=== PATIENT | female | born 1960 | race Two or more races ===

== ENCOUNTER 2016-02-27 01:07 | Emergency (ER) | payer MEDICAID, OTHER ==
--- NOTE | 2016-02-27 01:31 | ERNOTE ---
Date of Service: 02/27/16 Stated Complaint: PNUEMONIA Presenting Symptoms:: cough, fever, other - aches and pains Source: patient Exam Limitations: no limitations Immunizations: IMMUNIZATION HX Immunizations Up to Date Yes History of Influenza Vaccine No Hx Pneumococcal Vaccination No Allergies/Adverse Reactions: Allergies aspirin Allergy (Severe, Verified 02/27/16 01:14) Iodinated Contrast Media - IV Dye Allergy (Severe, Verified 02/27/16 01:14) prednisone Allergy (Severe, Verified 02/27/16 01:14) Home Medications: HOME MEDICATIONS Amox Tr/Potassium Clavulanate [Augmentin 875-125 Tablet] 875 mg PO Q12H #20 tab 02/27/16 [Last Taken Unknown] Atenolol [Tenormin] 100 mg PO DAILY 02/27/16 [Last Taken 02/26/16 21:00] Flecainide Acetate [Tambocor] 100 mg PO BID 02/27/16 [Last Taken 02/26/16 21:00] Guaifenesin/Codeine Phosphate [Codeine-Guaifen 10-100 mg/5 ml] 5 ml PO 5XD PRN # 240 liquid 02/27/16 [Last Taken Unknown] Lisinopril/Hydrochlorothiazide [Lisinopril-Hctz 20-12.5 mg Tab] 1 each PO HS 11/04 [Last Taken 02/26/16 21:00] - History of Present Ilness Narrative: 55-year-old female who smokes pack of cigarettes per day for many years states she developed a cold and cough 2 days ago and feels achy all over. She has not had a flu shot Timing: constant Severity: moderate Frequency/Possible Cause: Reports: occasional episodes Modifying Factors - Improves: Reports: nothing Modifying Factors - Worsens: Reports: nothing Associated Symptoms: Reports: cough, shortness of breath, muscle aches, fever/ chills Review of Systems - Review of Systems Constitutional: Present: See HPI EYE: Present: no symptoms reported ENT: Present: See HPI Respiratory: Present: See HPI Cardiology: Present: no symptoms reported Gastrointestinal/Abdominal: Present: no symptoms reported Genitourinary: Present: no symptoms reported Musculoskeletal: Present: See HPI Skin: Present: no symptoms reported Neurological: Present: no symptoms reported Endocrine: Present: no symptoms reported Hematologic/Lymphatic: Present: no symptoms reported Psych: Present: no symptoms reported All Other Systems: All systems neg except as marked - Patient's Past Medical History Patient History - Medical: Anemia Patient History - Surgical Procedures: Appendectomy, Cholecystectomy, Hysterectomy, Other - Social History Living Situations: home Smoking Status: Current every day smoker Patient requests Smoking Cessation Consult: No Initiate information on Smoking Cessation: No Alcohol Use: none Drug Use: none Physical Exam - Physical Exam General Appearance: Present: mild distress Eye Exam: Normal inspection: bilateral, PERRL: bilateral Ears, Nose, Throat: Present: normal ENT inspection, hearing grossly normal, normal pharynx Neck: Present: normal inspection, nontender Respiratory: Present: no respiratory distress, no accessory muscle use, chest nontender, other - distant harsh breath sounds bilaterally but no rales rhonchi or wheezing Cardiovascular/Chest: Present: regular rate, rhythm, no murmur, normal peripheral pulses Gastrointestinal/Abdominal: Present: normal bowel sounds, nontender, nondistended, soft, no organomegaly Rectal Exam: Present: deferred Back Exam: Present: normal inspection, normal range of motion, no CVA tenderness , no vertebral tenderness Extremity Exam: Present: normal inspection, non-tender, no edema, normal range of motion Neurological Exam: Present: alert, oriented, normal mood/affect, no motor/ sensory deficits Skin Exam: Present: normal color, warm/dry Lymphatic Exam: Present: no adenopathy ED Progress - Results and Orders Patient's Lab Results:: I have reviewed the patient's lab results. Results and Orders: Was elevated 15,000. Hemoglobin noted 8.8 but she has a long history of chronic anemia and is seeing a specialist and [facility] for this. - Vital Signs Patient's Vital Signs:: I have reviewed the patient's vital signs. Vital Signs: Vital Signs 02/27/16 01:10 Temperature 36.8 C Pulse Rate 71 Respiratory 20 Rate Blood Pressure 155/52 O2 Sat by Pulse 100 Oximetry - X-Ray X-Ray #1 X-Ray: chest - Scarring of LLL. 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
[2016-02-27 01:36] LABS: Hematocrit 27.9 % (37.0-47.0); Hemoglobin 8.8 gm/dL (12.5-16.0); Mean Cell Volume 81.6 fl (78-100); Mean Corpuscular Hemoglobin 25.7 pg (27-31); Mean Corpuscular Hgb Conc 31.5 g/dl (32-36); Mean Platelet Volume 9.3 fl (6.0-9.5); Platelet Count 406 K/mm3 (150-450); Red Blood Count 3.42 M/mm3 (4.2-5.4); Red Cell Distribution Width 14.5 % (11.5-14.0); White Blood Count 16.1 K/mm3 (4.0-10.5)
[2016-02-27 01:43] LABS: Total Cells Counted 100
[2016-02-27 01:59] LABS: Band 2 % (0-2.0); Hypochromia Trace; Lymphocyte 10 % (20-51); Microcytosis 1+; Monocyte 13 % (0-9); Neutrophil 75 % (42-75); Neutrophil # 12.1 K/mm3 (1.3-6.0); Platelet Estimate Normal (NORMAL)
[2016-02-27] MEDS ORDERED: AMOX TR/POTASSIUM CLAVULANATE 875 MG TABLET ONE (02:24)
[2016-02-27] MEDS ORDERED: AMOX TR/POTASSIUM CLAVULANATE 875 MG TABLET PO ONE (02:25)
[2016-02-27 02:36] VITALS: BP 145/42
== END 2016-02-27 02:35 | disposition home or self-care (01) ==
LOC: ER 01:07
DX: J20.9 Acute bronchitis, unspecified (principal); F17.210 Nicotine dependence, cigarettes, uncomplicated; D50.0 Iron deficiency anemia secondary to blood loss (chronic)

== ENCOUNTER 2016-04-02 17:56 | Emergency (ER) | payer OTHER ==
[2016-04-02 18:37] LABS: Hematocrit 34.4 % (37.0-47.0); Hemoglobin 11.2 gm/dL (12.5-16.0); Mean Cell Volume 83.9 fl (78-100); Mean Corpuscular Hemoglobin 27.3 pg (27-31); Mean Corpuscular Hgb Conc 32.6 g/dl (32-36); Mean Platelet Volume 9.5 fl (6.0-9.5); Neutrophil # 7.4 K/mm3 (1.3-6.0); Neutrophil % 71.8 % (42-75.0); Platelet Count 406 K/mm3 (150-450); Red Cell Distribution Width 18.2 % (11.5-14.0); White Blood Count 10.3 K/mm3 (4.0-10.5)
[2016-04-02] MEDS ORDERED: ALBUTEROL SULFATE 2.5 MG/0.5 ML VIAL.NEB IH ONE ×2 (18:41→18:47)
[2016-04-02 18:50] LABS: Albumin * 3.1 gm/dl (3.4-5.0); Anion Gap 15.2 mmol/L (6.8-13.8); Bilirubin, Total 0.1 mg/dL (0.0-1.1); Ca. Corrected For Albumin 9.4 mg/dL (8.4-10.2); Carbon Dioxide 20.3 mmol/L (24-32.6); Potassium 3.5 mmol/L (3.4-4.6)
--- NOTE | 2016-04-02 18:54 | ERNOTE ---
Dyspnea - Date Date of Service: 04/02/16 - General Presenting Symptoms: shortness of breath, difficulty of breathing, other - cough Time Seen by Provider: 04/02/16 18:31 Source: patient Exam Limitations: no limitations - Immun/Allergies/Home Medications Immunizations: IMMUNIZATION HX Immunizations Up to Date Yes History of Influenza Vaccine No Hx Pneumococcal Vaccination No Allergies/Adverse Reactions: Allergies aspirin Allergy (Severe, Verified 04/02/16 18:11) Iodinated Contrast Media - IV Dye Allergy (Severe, Verified 04/02/16 18:11) prednisone Allergy (Severe, Verified 04/02/16 18:11) Home Medications: HOME MEDICATIONS Atenolol [Tenormin] 100 mg PO DAILY 02/27/16 [Last Taken 02/26/16 21:00] Flecainide Acetate [Tambocor] 100 mg PO BID 02/27/16 [Last Taken 02/26/16 21:00] Lisinopril/Hydrochlorothiazide [Lisinopril-Hctz 20-12.5 mg Tab] 1 each PO HS 11/04 [Last Taken 02/26/16 21:00] - History of Present Illness Narrative: Pt. comes in with c/o SOB and cough for two days. Pt. states it is accompanied by nasal congestion and post nasal gtt. Pt. recently had a bronchitis 2 weeks ago that resolved with Antibiotics but then started feeling bad again yesterday. Pt. denies any chest pain, fever, sore throat, NVD, or alleviating factors. Pt. states that the cold and lying down exacerbate the symptoms. Review of Systems - Review of Systems Constitutional: Present: recent illness, fatigue, malaise. Absent: fever, chills EYE: Present: no symptoms reported ENT: Present: nose congestion, nasal drainage. Absent: ear pain, sore throat Respiratory: Present: shortness of breath, cough. Absent: wheezing Cardiology: Present: no symptoms reported. Absent: chest pain, palpitations, edema Gastrointestinal/Abdominal: Present: no symptoms reported. Absent: nausea, vomiting, diarrhea Genitourinary: Present: no symptoms reported Musculoskeletal: Present: no symptoms reported. Absent: back pain, joint pain Skin: Present: no symptoms reported. Absent: rash, change in color Neurological: Present: no symptoms reported. Absent: headache, dizziness/light- headedness, numbness, tingling All Other Systems: All systems neg except as marked - Patient's Past Medical History Patient History - Medical: Anemia Patient History - Cardiac/Respiratory: Hypertension, Hyperlipidemia, Myocardial Infarction Patient History - Surgical Procedures: Appendectomy, Cholecystectomy, Hysterectomy, Other Patient History - Other: None - Social History Living Situations: home Abuse History: No History of abuse Psych History: No pertinent hx Alcohol Use: none Drug Use: none - Immunizations Immunizations Up to Date: Yes Hx Pneumococcal Vaccination: No History of Influenza Vaccine: No Physical Exam - Physical Exam General Appearance: Present: wd/wn, alert, no apparent distress Eye Exam: Normal inspection: bilateral, PERRL: bilateral, EOMI: bilateral Ears, Nose, Throat: Present: hearing grossly normal, nasal congestion, sinus pain/drainage, tonsillar exudate - white. Absent: abnormal TM (R), abnormal TM (L), pharyngeal erythema Neck: Present: normal inspection, nontender. 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 is SOB and tachycardic we will perform CT chest here on emergent basis rather than out pt. 04/02/16 19:46 Pt. with severe allergy to IV dye and the premedication so will not perform CT and consult with her pulmonology team at [facility] as this is suspicious for recurrent histoplasmosis. 04/02/16 20:[address] Narvaez and as pt. has significant history he recommends pt. be transferred to [facility] for pleuralcentesis, evaluation of fluid and possible decortication as he feels that since pt. has rapidly declined over the past two days that she requires emergent admit to [facility]. Pt. will go to ED for start of work up as there are no open bed at this time on the MICU. Gave report to Dr Browning in the ED and he would like me to give solumedrol to pt. He is aware of allergy and feels it is safe. - Results and Orders Patient's Lab Results:: I have reviewed the patient's lab results. - Vital Signs Patient's Vital Signs:: I have reviewed the patient's vital signs. Vital Signs: Vital Signs 04/02/16 04/02/16 04/02/16 18:04 18:25 18:26 Temperature 36.6 C Pulse Rate 86 107 H Respiratory 12 Rate Blood Pressure 149/76 O2 Sat by Pulse 98 98 Oximetry - X-Ray X-Ray #1 X-Ray: chest Interpretation: Reviewed by me X-ray Comments: Loculated fluid LLL enlarging - Progress/Reassessment Chief Complaint: Dyspnea Departure Clinical Impression: Pleural effusion, Histoplasmosis capsulati, unspecified - Departure Disposition: [facility] Condition: Fair Referrals: Medina Ritter DO [Primary Care Provider] -
[2016-04-02] MEDS ORDERED: ACETAMINOPHEN 500 MG TABLET PO ONE (19:30)
[2016-04-02] MEDS ORDERED: METHYLPREDNISOLONE SOD SUCC/PF 125 MG/2 ML VIAL IV ONE (20:22)
[2016-04-02] MEDS ORDERED: METHYLPREDNISOLONE SOD SUCC/PF 125 MG/2 ML VIAL ONE (20:29)
[2016-04-02 20:47] VITALS: BP 134/62
--- OUTSIDE RECORDS SUMMARY | 2016-04-02 20:58 | XMS REPORT | Continuity of Care Document ---
:1960 Author Organization [facility] [place] [address] Care Team Providers Name Role Phone Unavailable Primary Care Provider Unavailable Source Comments This disclosure is being made pursuant to the [employer] program and maynot contain all information available regarding this patient.[facility] Active Allergies and Adverse Reactions Allergen Noted Date Severity Reactions Comments Aspirin 01/21/2014 Headache Prednisone 01/21/2014 High Hives Current Medications Be aware that medications may not be up to date as of this document. Alwaysverify current medications with the patient. Prescription Sig. Disp. Refills Start Date End Date Status ferrous sulfate 325 (65 FE) Take 325 mg by Active MG TABS tablet mouth daily with breakfast. albuterol (PROVENTIL Inhale 2 puffs Active HFA;VENTOLIN HFA) 108 (90 into the lungs BASE) MCG/ACT inhaler every 4 (four) to 6 (six) hours as needed for Wheezing. hydrochlorothiazide Take 25 mg by Active (HYDRODIURIL) 25 MG tablet mouth daily. lisinopril Take 40 mg by Active (PRINIVIL,ZESTRIL) 40 MG mouth daily. tablet isosorbide dinitrate Take 10 mg by Active (ISORDIL) 10 MG tablet mouth 2 (two) times daily. atorvastatin (LIPITOR) 10 MG Take 10 mg by Active tablet mouth daily. pantoprazole (PROTONIX) 40 Inject 40 mg Active MG injection into the vein daily. metoprolol tartrate Take 25 mg by Active (LOPRESSOR) 25 MG tablet mouth 2 (two) times daily. clopidogrel (PLAVIX) 75 MG Take 75 mg by Active tablet mouth daily. nitroGLYCERIN (NITROSTAT) Place 0.4 mg Active 0.4 MG SL tablet under the tongue every 5 (five) minutes as needed for Chest pain. Active Problems Not on file Most Recent Encounters Date Type Specialty Providers Description 02/02/2016 Data Import Social History Tobacco Use Types Packs/Day Years Used Date Never Assessed Plan of Care Health Maintenance Due Date Last Done Comments Tetanus/Pertussis (1 - Tdap) 1980 Pap Smear 1982 Colonoscopy 12/07/2011 Mammogram 12/07/2011 Well Adult Visit 12/07/2011 Influenza Immunization (#1) 2015 Results from Last 3 Months Not on file
--- OUTSIDE RECORDS SUMMARY | 2016-04-02 20:58 | XMS REPORT | Continuity of Care Document ---
:1960 Author Organization [facility] ([facility]) Address [place] [address] Phone [phone] Care Team Providers Name Role Phone Medina Ritter Primary Care Provider [phone] Source Comments This disclosure is being made pursuant to the Care Everywhere program, applicable federal and state laws, and may not contain all informaitonavailable regarding this patient.[facility] ([facility]) Active Allergies and Adverse Reactions Allergen Noted Date Severity Reactions Comments Aspirin Urticaria (Hives) Iodine Urticaria (Hives),Pruritus,Song sea & Vomiting Iopamidol Pruritus,Nausea & Pt. premedicated with Vomiting prednisone and still had reaction 09-18-07 Isosorbide Mononitrate Urticaria (Hives),Angioedema Prednisone Nausea & Vomiting Current Medications Prescription Sig. Disp. Refills Start Date End Date Status flecainide 100 mg Take 1 tablet 60 tablet 11 03/18/2015 Active tablet (100 mg total) by mouth 2 times daily. atenolol 100 mg tablet Take 1 tablet 30 tablet 11 03/18/2015 Active (100 mg total) by mouth daily. lisinopril-hydrochlorot Take 1 tablet by 30 tablet 11 04/25/2015 Active hiazide 20-12.5 mg per mouth daily. 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 LMCA normal. LAD 50% mid, LCX normal. RCA normal 10/20/2006- [place] Cath: Normal EF. LMCA normal. LAD 50% mid, LCX normal. RCA normal Stent to mid LAD (pt report) 10/25/2006-[place] Cath: Normal EF. LMCA normal. LAD patent stent, LCX normal. RCA normal Stent to mid LAD 11/2006 [facility] Stress Test MPI: 03/17/2007//08/11/2007 [facility]. No ischemia. 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 --MAL Coronary atherosclerosis of unspecified type of vessel, [place] 09/11/2007 or graft Other and unspecified hyperlipidemia 09/11/2007 03/17/2015 Other chest pain 08/10/2007 04/25/2015 Anemia, unspecified 06/25/2007 03/17/2015 Other diseases of lung, not elsewhere classified 11/26/2006 11/15/2015 Chest pain, unspecified 11/26/2006 03/17/2015 Most Recent Encounters Date Type Specialty Providers Description 04/02/2016 Hospital Encounter Emergency Medicine Immunizations Name Dates Previously Given Next Due Influenza, unspecified 03/15/2007 Social History Tobacco Use Types Packs/Day Years Used Date Current Every Day Smoker Cigarettes 0.5 35 Smokeless Tobacco: Never Used Tobacco Cessation:Ready to Quit: No; Counseling Given: Yes Comments: Alcohol Use Drinks/Week oz/Week Comments No Last Filed Vital Signs Vital Sign Reading Time Taken Blood Pressure 136/60 05/19/2015 12:44 PM CDT Pulse 68 05/19/2015 12:44 PM CDT Temperature 36.7 C (98.1 F) 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 Respiratory Rate 18 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 Height 1.575 m (5' 2.01") 05/19/2015 12:44 PM CDT Weight 58.514 kg (129 lb) 05/19/2015 12:44 PM CDT Body Mass Index 23.59 05/19/2015 12:44 PM CDT Oxygen Saturation 99% 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
== END 2016-04-02 20:43 | disposition short-term general hospital (02) ==
LOC: ER 17:56
DX: J90 Pleural effusion, not elsewhere classified (principal); B39.4 Histoplasmosis capsulati, unspecified

== ENCOUNTER 2016-11-23 20:09 | Emergency (ER) | payer OTHER ==
--- NOTE | 2016-11-23 20:32 | ERNOTE ---
Medical Problem HPI - Narrative Date of Service: 11/23/16 - General Chief Complaint: General Assessment Time Seen by Provider: 11/23/16 20:29 Source: patient, RN notes reviewed Exam Limitations: no limitations - Immun/Allergies/Home Medications Immunizations: IMMUNIZATION HX Immunizations Up to Date Yes History of Influenza Vaccine No Hx Pneumococcal Vaccination No Allergies/Adverse Reactions: Allergies aspirin Allergy (Severe, Verified 11/23/16 20:28) Iodinated Contrast- Oral and IV Dye [Iodinated Contrast Media - IV Dye] Allergy (Severe, Verified 11/23/16 20:28) prednisone Allergy (Severe, Verified 11/23/16 20:28) Home Medications: HOME MEDICATIONS Lisinopril/Hydrochlorothiazide [Lisinopril-Hctz 20-12.5 mg Tab] 1 each PO HS 11/04 [Last Taken 02/26/16 21:00] Flecainide Acetate 100 mg PO BID 11/23/16 [Last Taken Unknown] Pramipexole Di-HCl [Pramipexole Dihydrochloride] 0.25 mg PO DAILY 11/23/16 [ Last Taken Unknown] - History of Present History Narrative: 55 year old female presents to the ED for "low iron." She has chronic anemia that she reports is of an unknown cause. She states that her "iron" level was 9 two weeks ago, but she has been gradually becoming more fatigued. She has an appointment with her PCP in 4 days. She has to work a 24 hour shift tomorrow and does not feel that she will be able to do this. Review of Systems - Review of Systems Constitutional: Present: fatigue, malaise. Absent: recent illness, fever, chills EYE: Present: no symptoms reported ENT: Present: no symptoms reported Respiratory: Present: shortness of breath. Absent: cough, wheezing Cardiology: Absent: chest pain, palpitations, syncope Gastrointestinal/Abdominal: Absent: nausea, vomiting, diarrhea, abdominal pain, other - blood in stools Genitourinary: Absent: hematuria, decreased urinary output Musculoskeletal: Present: muscle pain, joint pain Skin: Absent: rash, lesions Neurological: Present: headache, dizziness/light-headedness Endocrine: Present: no symptoms reported Hematologic/Lymphatic: Absent: easy bruising, easy bleeding Psych: Present: no symptoms reported - Patient's Past Medical History Patient History - Medical: Anemia Patient History - Cardiac/Respiratory: Hypertension, Hyperlipidemia, Myocardial Infarction Patient History - Cancer: No Hx of Cancer Patient History - Surgical Procedures: Appendectomy, Cholecystectomy, Hysterectomy, Other Patient History - Other: None LMP (females 10-50): other - Social History Living Situations: home Abuse History: No History of abuse Psych History: No pertinent hx - Immunizations Immunizations Up to Date: Yes Hx Pneumococcal Vaccination: No History of Influenza Vaccine: No Physical Exam - Physical Exam General Appearance: Present: wd/wn, alert, no apparent distress Eye Exam: Normal inspection: bilateral Neck: Present: normal inspection, nontender, supple Respiratory: Present: no respiratory distress, normal breath sounds, no accessory muscle use, lungs clear Cardiovascular/Chest: Present: regular rate, rhythm, no murmur, normal peripheral pulses Extremity Exam: Present: normal inspection, normal range of motion, no edema Neurological Exam: Present: alert, oriented, no motor/sensory deficits, other - depressed appearing. Absent: normal mood/affect Skin Exam: Present: normal color, warm/dry ED Progress - Results and Orders Patient's Lab Results:: I have reviewed the patient's lab results. - Vital Signs Patient's Vital Signs:: I have reviewed the patient's vital signs. Vital Signs: Vital Signs 11/23/16 20:16 Temperature 36.7 C Pulse Rate 86 Respiratory 14 Rate Blood Pressure 162/62 O2 Sat by Pulse 97 Oximetry - Progress/Reassessment Chief Complaint: General Assessment Progress:: Unchanged Plan - Plan Plan: Hgb 8.9, results discussed with patient, to f/u with her PCP as scheduled. Work excuse given for tomorrow. Departure Clinical Impression: Chronic anemia - Departure Disposition: Home Follow Up Needed Condition: Stable Instructions: Anemia, Nonspecific, Form - Excuse from Work, School, or Physical Activity Additional Instructions: Follow up with Dr. Ritter as scheduled Referrals: Medina Ritter DO [Primary Care Provider] -
[2016-11-23 20:44] LABS: Hematocrit 28.2 % (37.0-47.0); Hemoglobin 8.9 gm/dL (12.5-16.0); Mean Cell Volume 83.2 fl (78-100); Mean Corpuscular Hemoglobin 26.3 pg (27-31); Mean Corpuscular Hgb Conc 31.6 g/dl (32-36); Mean Platelet Volume 9.4 fl (6.0-9.5); Neutrophil # 7.6 K/mm3 (1.3-6.0); Neutrophil % 67.8 % (42-75.0); Platelet Count 457 K/mm3 (150-450); Red Blood Count 3.39 M/mm3 (4.2-5.4); Red Cell Distribution Width 14.5 % (11.5-14.0); White Blood Count 11.2 K/mm3 (4.0-10.5)
[2016-11-23 21:01] VITALS: BP 166/74
== END 2016-11-23 21:06 | disposition home or self-care (01) ==
LOC: ER 20:09
DX: D64.9 Anemia, unspecified (principal); I10 Essential (primary) hypertension; E78.5 Hyperlipidemia, unspecified; I25.2 Old myocardial infarction

== ENCOUNTER 2020-06-16 23:20 | Observation (INO) ==
[2020-06-16] MEDS ORDERED: hydrALAZINE HCL 20 MG/ML VIAL IV ONE (23:46)
[2020-06-16] MEDS ORDERED: hydrALAZINE HCL 20 MG/ML VIAL ONE (23:47)
--- NOTE | 2020-06-16 23:52 | ERNOTE ---
Chest Pain/Cardiac HPI Date of Service: 06/16/20 Chief Complaint: Chest Pain Time Seen by Provider: 06/16/20 23:35 Source: patient, family Exam Limitations: no limitations Immunizations: IMMUNIZATION HX Immunizations Up to Date Yes History of Influenza Vaccine No Hx Pneumococcal Vaccination More Information Required Allergies/Adverse Reactions: Allergies aspirin Allergy (Severe, Verified 06/16/20 23:42) Iodinated Contrast Media [Iodinated Contrast Media - IV Dye] Allergy (Severe, Verified 06/16/20 23:42) prednisone Allergy (Severe, Verified 06/16/20 23:42) codeine Allergy (Verified 06/16/20 23:42) nauseas and rash Home Medications: HOME MEDICATIONS Lisinopril/Hydrochlorothiazide [Lisinopril-Hctz 20-12.5 mg Tab] 1 ea PO HS 02/27/16 [Last Taken 06/16/20 20:00] acetaminophen 325 mg capsule 325 mg PO DAILY PRN cap 03/05/18 [Last Taken Unknown] flecainide 100 mg tablet 200 mg PO Q12H tab 03/05/18 [Last Taken 06/16/20 20:00] ibuprofen 200 mg tablet 800 mg PO TID PRN tab 03/05/18 [Last Taken 06/16/20 19:00] omeprazole 40 mg capsule,delayed release 40 mg PO DAILY 03/05/18 [Last Taken 06/16/20 10:00] tiotropium bromide 1.25 mcg/actuation mist for inhalation 2 inh IH DAILY 03/05/18 [Last Taken Unknown] Carvedilol [Coreg] 1 mg PO DAILY 09/09/18 [Last Taken 06/16/20 10:00] rOPINIRole HCL [Ropinirole HCl] 0.5 mg PO BID 06/29/19 [Last Taken 06/16/20 20:00] Ondansetron [Zofran Odt] 4 mg PO Q6H PRN #20 tab 04/29/20 [Last Taken 06/16/20] Rivaroxaban [Xarelto] 20 mg PO HS 04/29/20 [Last Taken 06/16/20 20:00] Escitalopram Oxalate 10 mg PO DAILY 06/01/20 [Last Taken 06/16/20 10:00] Pain Score #1 Pain Score: 5 Narrative: Patient is 59-year-old female presents to emergency room today accompanied by caregiver and friend with chief complaint of having very high blood pressure and headache started about 10 PM today. Patient has history of CVA hypertension. Patient takes carvedilol 1 mg once daily and lisinopril hydrochlorothiazide 20- 12.5 once at bedtime. 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 Caregiver reports that she has not been feeling well and last 3-month and has not been really having any appetite. She has been taking the medication as prescribed. She had endoscopy about a week ago and she has had high blood pressure since then. Patient denies any nausea vomiting vision change. Patient has generalized headache no worsening weakness however patient has chronic left-sided weakness due to the pre of prior CVA. Patient feels chest tightness and generalized chest heaviness. EKG initially did not show any changes. Medical History (Last Reviewed 06/17/20 @ 04:00 by Pamela Medina RN) Anemia Onset Date: Unknown Requires blood transfusions every 6 to 8 months. Arthralgia Onset Date: 01/28/15 Heart attack x11 yrs ago Histoplasmosis Onset Date: 01/28/15 History of acute myocardial infarction Onset Date: 01/28/15 Hypertension, essential, benign Onset Date: 01/28/15 Lung infection Onset Date: Unknown Myalgia Onset Date: 01/28/15 Pneumothorax Onset Date: Unknown r/t histoplasmosis Wrist fracture, left Onset Date: 03/04/18 Surgical History: Surgical History (Last Reviewed 06/17/20 @ 04:00 by Pamela Medina RN) H/O heart artery stent History of appendectomy Onset Date: Unknown History of chest tube placement Onset Date: Unknown 6 months History of cholecystectomy Onset Date: Unknown History of colonoscopy Onset Date: 2014 normal History of hernia surgery History of lung biopsy Onset Date: Unknown History of lung surgery Onset Date: Unknown x3 History of total abdominal hysterectomy and bilateral salpingo-oophorectomy Onset Date: Unknown Family History: Family History (Last Reviewed 06/17/20 @ 04:01 by Pamela Medina RN) Mother , age 83 Cancer lung COPD (chronic obstructive pulmonary disease) Hypertension Diabetes borderline Father Medical history unknown Brother Fibromyalgia, Onset Age: 58 Social History: (Last Updated 06/17/20 @ 04:03 by Pamela Medina RN) Social History: Marital status: household members: friend(s) current occupational status: disabled Highest level of school completed/degree received: high school graduate Service: No Tobacco: Smoking Status: Current every day smoker tobacco type: cigarettes Smoking cigarettes per day: 5 Alcohol: alcohol intake: never Substance Use: substance use type: does not use Dietary Habits: caffeine: Yes caffeine comment: 1 Type: coffee Progress - Date and Time Seen: Date and Time: 06/17/20 00:25 Evaluate patient again after giving hydralazine initially elevation patient blood pressure is not within normal full range that he want to be at this moment patient is reporting chest pain improved and headache is still there we are doing the CT now as patient's blood pressure is stabilized. 06/17/20 06:32 I personally looked at the patient's lab for 3 AM we are getting good results in potassium will continue the same management for potassium. At this moment patient has mild hypokalemia and will be replaced hospitalist will take over I personally really appreciate Dr. Hernandez's help overnight and excepting patient's admission - Vital Signs Vital Signs: Vital Signs 06/16/20 23:42 Temperature 36.4 C Pulse Rate 60 Respiratory Rate 17 Blood Pressure 217/83 H O2 Sat by Pulse Oximetry 98 - Progress/Reassessment Chief Complaint: Chest Pain Plan - Plan Plan: Admitted to the hospital for hyperkalemia and physical deconditioning Departure Clinical Impression: Hypokalemia, Generalized weakness, Hypertensive emergency without congestive heart failure - Departure Disposition: Still a patient Condition: Good
[2020-06-17 00:16] LABS: Hematocrit 30.7 % (37.0-47.0); Hemoglobin 10.1 gm/dL (12.5-16.0); Mean Cell Volume 89.5 fl (78-100); Mean Corpuscular Hemoglobin 29.4 pg (27-31); Mean Corpuscular Hgb Conc 32.9 g/dl (32-36); Mean Platelet Volume 10.6 fl (8-12.5); Neutrophil # 4.7 K/mm3 (1.3-6.0); Neutrophil % 62.4 % (42-75.0); Platelet Count 325 K/mm3 (150-450); Red Blood Count 3.43 M/mm3 (4.2-5.4); Red Cell Distribution Width 13.3 % (11.5-14.0); White Blood Count 7.5 K/mm3 (4.0-10.5)
[2020-06-17 00:24] LABS: Prothrombin Time (Patient) 12.4 Seconds (9.1-10.7)
[2020-06-17 00:26] LABS: INR 1.2 INR (0.92-1.08); Partial Thrombolplastin Time 27.8 Seconds (24-32)
[2020-06-17 00:37] LABS: Albumin * 3.1 gm/dl (3.4-5.0); Anion Gap 12.7 mmol/L (6.8-13.8); BUN/Creatinine Ratio 18.3 (9.0-21.6); Bilirubin, Total 0.4 mg/dL (0.0-1.1); Ca. Corrected For Albumin 9.8 mg/dL (8.4-10.2); Calcium * 9.4 mg/dL (7.9-10.9); Carbon Dioxide 21.7 mmol/L (24-32.6); Troponin I 0.021 ng/mL (0.00-0.10)
[2020-06-17 00:39] LABS: Potassium 2.4 mmol/L (3.4-4.6)
[2020-06-17] MEDS ORDERED: POTASSIUM CHLORIDE 20 MEQ/15 ML UDC PO SCH (00:45)
[2020-06-17 00:55] LABS: Magnesium 1.6 mg/dL (1.2-2.8)
[2020-06-17] MEDS: POTASSIUM CHLORIDE IN WATER 100 ML IV SCH ×2 (01:31→02:41)
[2020-06-17] MEDS ORDERED: POTASSIUM CHLORIDE 20 MEQ TABLET.SA PO ONE ×2 (01:37→10:02)
[2020-06-17] MEDS ORDERED: ACETAMINOPHEN 500 MG TABLET PO ONE (01:42)
[2020-06-17] MEDS ORDERED: POTASSIUM CHLORIDE 40 MEQ in NORMAL SALINE 1,000 ML IV SCH (02:00)
[2020-06-17 03:22] LABS: Anion Gap 13.4 mmol/L (6.8-13.8); BUN/Creatinine Ratio 16.7 (9.0-21.6); Calcium * 8.9 mg/dL (7.9-10.9); Carbon Dioxide 19.7 mmol/L (24-32.6); Estimated Creat Clear 64.3; Potassium 3.1 mmol/L (3.4-4.6)
[2020-06-17] MEDS ORDERED: ONDANSETRON HCL/PF 2 MG/ML VIAL IV PRN (03:27)
[2020-06-17] MEDS ORDERED: hydrALAZINE HCL 20 MG/ML VIAL IV ONE (03:54)
[2020-06-17 09:37] LABS: Albumin * 2.7 gm/dl (3.4-5.0); Anion Gap 13.7 mmol/L (6.8-13.8); BUN/Creatinine Ratio 14.9 (9.0-21.6); Bilirubin, Total 0.3 mg/dL (0.0-1.1); Ca. Corrected For Albumin 9.3 mg/dL (8.4-10.2); Calcium * 8.6 mg/dL (7.9-10.9); Carbon Dioxide 19.4 mmol/L (24-32.6); Potassium 3.1 mmol/L (3.4-4.6); Total Protein 5.4 gm/dL (6.2-8.2)
[2020-06-17] MEDS ORDERED: ACETAMINOPHEN 500 MG TABLET PO PRN (12:44)
[2020-06-17 13:32] LABS: Albumin * 2.7 gm/dl (3.4-5.0); BUN/Creatinine Ratio 14.1 (9.0-21.6); Bilirubin, Total 0.3 mg/dL (0.0-1.1); Ca. Corrected For Albumin 9.3 mg/dL (8.4-10.2); Calcium * 8.6 mg/dL (7.9-10.9); Carbon Dioxide 18.8 mmol/L (24-32.6); Potassium 3.8 mmol/L (3.4-4.6); Total Protein 5.4 gm/dL (6.2-8.2)
--- NOTE | 2020-06-17 13:48 | HPDIS ---
Chief Complaint - Chief Complaint Date of Service: 06/17/20 Time of Service: 09:00 Chief Complaint: Headache, elevated Blood pressure History of Present Illness: Buffy is a 59 yo female who presented to the [facility] ER with headache and elevated blood pressure. Bloodwork, head CT, and chest xray showed only a significant hypokalemia of 2.4. She was given potassium replacement. Her blood pressure in the ER was also 217/82. She reports she had been on lisinopril/HCTZ, but had been changed to only HCTZ due to hypotension. She reports no other change in diet or medications. Medical History (Last Reviewed 06/17/20 @ 04:00 by Pamela Medina RN) Anemia Onset Date: Unknown Requires blood transfusions every 6 to 8 months. Arthralgia Onset Date: 01/28/15 Heart attack x11 yrs ago Histoplasmosis Onset Date: 01/28/15 History of acute myocardial infarction Onset Date: 01/28/15 Hypertension, essential, benign Onset Date: 01/28/15 Lung infection Onset Date: Unknown Myalgia Onset Date: 01/28/15 Pneumothorax Onset Date: Unknown r/t histoplasmosis Wrist fracture, left Onset Date: 03/04/18 Surgical History: Surgical History (Last Reviewed 06/17/20 @ 04:00 by Pamela Medina RN) H/O heart artery stent History of appendectomy Onset Date: Unknown History of chest tube placement Onset Date: Unknown 6 months History of cholecystectomy Onset Date: Unknown History of colonoscopy Onset Date: 2014 normal History of hernia surgery History of lung biopsy Onset Date: Unknown History of lung surgery Onset Date: Unknown x3 History of total abdominal hysterectomy and bilateral salpingo-oophorectomy Onset Date: Unknown Family History: Family History (Last Reviewed 06/17/20 @ 04:01 by Pamela Medina RN) Mother , age 83 Cancer lung COPD (chronic obstructive pulmonary disease) Hypertension Diabetes borderline Father Medical history unknown Brother Fibromyalgia, Onset Age: 58 Social History: (Last Updated 06/17/20 @ 04:03 by Pamela Medina RN) Social History: Marital status: household members: friend(s) current occupational status: disabled Highest level of school completed/degree received: high school graduate Service: No Tobacco: Smoking Status: Current every day smoker tobacco type: cigarettes Smoking cigarettes per day: 5 Alcohol: alcohol intake: never Substance Use: substance use type: does not use Dietary Habits: caffeine: Yes caffeine comment: 1 Type: coffee Review Of Systems (GEN) - Review of Systems Generalized/Overall Review: Present: Weakness, Fatigue. Absent: Chills, Fever EENTM: Present: No Symptoms Reported Respiratory: Absent: Cough, Shortness of Breath Cardiac: Absent: Chest Pain, Edema, Palpitations, Syncope Abdominal: Absent: Nausea, Vomiting Genitourinary: Absent: Burning, Frequency Musculoskeletal: Present: No Symptoms Reported Neurological: Present: Headache, Weakness Skin: Present: No Symptoms Reported Immunizations: IMMUNIZATION HX Immunizations Up to Date Yes History of Influenza Vaccine No Hx Pneumococcal Vaccination More Information Required Allergies/Adverse Reactions: Allergies Allergy/AdvReac Type Severity Reaction Status Date / Time aspirin Allergy Severe Verified 06/16/20 23:42 Iodinated Contrast Media Allergy Severe Verified 06/16/20 23:42 [Iodinated Contrast Media - IV Dye] prednisone Allergy Severe Verified 06/16/20 23:42 codeine Allergy nauseas Verified 06/16/20 23:42 and rash Home Medications: HOME MEDICATIONS acetaminophen 325 mg capsule 325 mg PO DAILY PRN cap 03/05/18 [Last Taken Unknown] flecainide 100 mg tablet 200 mg PO Q12H tab 03/05/18 [Last Taken 06/16/20 20:00] ibuprofen 200 mg tablet 800 mg PO TID PRN tab 03/05/18 [Last Taken 06/16/20 19:00] omeprazole 40 mg capsule,delayed release 40 mg PO DAILY 03/05/18 [Last Taken 06/16/20 10:00] tiotropium bromide 1.25 mcg/actuation mist for inhalation 2 inh IH DAILY 03/05/18 [Last Taken Unknown] rOPINIRole HCL [Ropinirole HCl] 0.5 mg PO BID 06/29/19 [Last Taken 06/16/20 20:00] Ondansetron [Zofran Odt] 4 mg PO Q6H PRN #20 tab 04/29/20 [Last Taken 06/16/20] Rivaroxaban [Xarelto] 20 mg PO HS 04/29/20 [Last Taken 06/16/20 20:00] Escitalopram Oxalate 10 mg PO DAILY 06/01/20 [Last Taken 06/16/20 10:00] Carvedilol [Coreg] 25 mg PO BID 06/17/20 [Last Taken Unknown] Losartan Potassium [Cozaar] 50 mg PO DAILY #30 tab 06/17/20 [Last Taken Unknown] Exam - Exam Vital Signs: Vital Signs - Last Taken Temp 37.2 C 06/17/20 10:55 Pulse 56 L 06/17/20 10:55 Resp 18 06/17/20 10:55 BP 154/50 H 06/17/20 10:55 Pulse Ox 98 06/17/20 10:55 Constitutional: Present: Alert, Oriented x3, Cooperative ENT Exam: Present: hearing grossly normal Eye Exam: bilateral eye: normal inspection Respiratory: Present: lungs clear, normal breath sounds Cardiovascular/Chest: Present: regular rate, rhythm, no murmur Peripheral Pulses: radial (R): 2+, radial (L): 2+ Abdomen: Present: Normal bowel sounds, soft, nontender, nondistended Skin Exam: Present: normal color, warm/dry, no cyanosis Diagnostic Studies: Abnormal Lab Results 06/17/20 06/17/20 06/17/20 Range/Units 00:05 00:05 00:05 RBC 3.43 L (4.2-5.4) M/mm3 Hgb 10.1 L (12.5-16.0) gm/dL Hct 30.7 L (37.0-47.0) % Monocytes % 10.0 H (0.0-9) % PT 12.4 H (9.1-10.7) Seconds INR (Anticoag Therapy) 1.20 H (0.92-1.08) INR Sodium 144 H (132-142) mmol/L Plasma Sodium 144 H (130-142) mmol/L Potassium 2.4 L* (3.4-4.6) mmol/L Chloride 112 H (97-106) mmol/L Carbon Dioxide 21.7 L (24-32.6) mmol/L Anion Gap (6.8-13.8) mmol/L Random Glucose (70-110) mg/dL ALT 14 L (19-67) U/L Total Protein 6.0 L (6.2-8.2) gm/dL Albumin 3.1 L (3.4-5.0) gm/dl 06/17/20 06/17/20 06/17/20 Range/Units 03:10 09:10 13:07 RBC (4.2-5.4) M/mm3 Hgb (12.5-16.0) gm/dL Hct (37.0-47.0) % Monocytes % (0.0-9) % PT (9.1-10.7) Seconds INR (Anticoag Therapy) (0.92-1.08) INR Sodium 143 H 146 H 146 H (132-142) mmol/L Plasma Sodium 143 H 146 H 147 H (130-142) mmol/L Potassium 3.1 L D 3.1 L (3.4-4.6) mmol/L Chloride 113 H 116 H 117 H (97-106) mmol/L Carbon Dioxide 19.7 L 19.4 L 18.8 L (24-32.6) mmol/L Anion Gap 14.0 H (6.8-13.8) mmol/L Random Glucose 134 H D (70-110) mg/dL ALT 14 L 14 L (19-67) U/L Total Protein 5.4 L 5.4 L (6.2-8.2) gm/dL Albumin 2.7 L 2.7 L (3.4-5.0) gm/dl Laboratory Results WBC 7.5 K/mm3 (4.0-10.5) 06/17/20 00:05 RBC 3.43 M/mm3 (4.2-5.4) L 06/17/20 00:05 Hgb 10.1 gm/dL (12.5-16.0) L 06/17/20 00:05 Hct 30.7 % (37.0-47.0) L 06/17/20 00:05 MCV 89.5 fl (78-100) 06/17/20 00:05 MCH 29.4 pg (27-31) 06/17/20 00:05 MCHC 32.9 g/dl (32-36) 06/17/20 00:05 RDW 13.3 % (11.5-14.0) 06/17/20 00:05 Plt Count 325 K/mm3 (150-450) 06/17/20 00:05 MPV 10.6 fl (8-12.5) 06/17/20 00:05 Immature Gran % (Auto) 0.10 % (0.001-0.429) 06/17/20 00:05 Immature Gran # (Auto) 0.01 K/mm3 (0.000-0.0310) 06/17/20 00:05 Neutrophils % 62.4 % (42-75.0) 06/17/20 00:05 Lymphocytes % 25.1 % (20-51) 06/17/20 00:05 Monocytes % 10.0 % (0.0-9) H 06/17/20 00:05 Eosinophils % 1.9 % (0.0-3.0) 06/17/20 00:05 Basophils % 0.5 % (0.0-1.0) 06/17/20 00:05 Nucleated RBC % 0.0 k/mm3 (0-1) 06/17/20 00:05 Neutrophils # 4.7 K/mm3 (1.3-6.0) 06/17/20 00:05 Lymphocytes # 1.88 k/mm3 (1.5-3.5) 06/17/20 00:05 Monocytes # 0.8 k/mm3 (0.0-1.0) 06/17/20 00:05 Eosinophils # 0.1 k/mm3 (0.0-0.7) 06/17/20 00:05 Absolute Basophils 0.0 k/mm3 (0.0-0.1) 06/17/20 00:05 PT 12.4 Seconds (9.1-10.7) H 06/17/20 00:05 INR (Anticoag Therapy) 1.20 INR (0.92-1.08) H 06/17/20 00:05 PTT ([place]) 27.8 Seconds (24-32) 06/17/20 00:05 Sodium 146 mmol/L (132-142) H 06/17/20 13:07 Plasma Sodium 147 mmol/L (130-142) H 06/17/20 13:07 Potassium 3.8 mmol/L (3.4-4.6) D 06/17/20 13:07 Chloride 117 mmol/L (97-106) H 06/17/20 13:07 Carbon Dioxide 18.8 mmol/L (24-32.6) L 06/17/20 13:07 Anion Gap 14.0 mmol/L (6.8-13.8) H 06/17/20 13:07 BUN 10 mg/dL (3-23) 06/17/20 13:07 Creatinine 0.71 mg/dL (0.4-1.4) 06/17/20 13:07 Est GFR (Non-Af Amer) 90 mL/min (60-130) 06/17/20 13:07 BUN/Creatinine Ratio 14.1 (9.0-21.6) 06/17/20 13:07 Random Glucose 134 mg/dL (70-110) H D 06/17/20 13:07 Calcium 8.6 mg/dL (7.9-10.9) 06/17/20 13:07 Calcium Adj for Albumin 9.3 mg/dL (8.4-10.2) 06/17/20 13:07 Magnesium 1.6 mg/dL (1.2-2.8) 06/17/20 00:05 Total Bilirubin 0.3 mg/dL (0.0-1.1) 06/17/20 13:07 AST 13 U/L (0-48) 06/17/20 13:07 ALT 14 U/L (19-67) L 06/17/20 13:07 Alkaline Phosphatase 59 U/L (50-170) 06/17/20 13:07 Creatine Kinase 53 U/L (0-259) 06/17/20 00:05 Troponin I 0.021 ng/mL (0.00-0.10) 06/17/20 00:05 Total Protein 5.4 gm/dL (6.2-8.2) L 06/17/20 13:07 Albumin 2.7 gm/dl (3.4-5.0) L 06/17/20 13:07 SARS-CoV-2 (PCR) Not detected (NotDetected) 06/17/20 01:43 Assessment/Plan - Narrative Narrative: Buffy was given potassium in the ER. Potassium recheck was 3.1 and still a little low. Blood pressure is improved to 154/50. She is feeling better. Weakness secondary to hypokalemia. Will admit to observation and continue potassium replacement. Plan to discharge to home later today once potassium normalizes. Will plan to stop HCTZ and start losartan for blood pressure control and to prevent hypokalemia. - Assessment/Plan (1) Accelerated essential hypertension Problem: Acute (2) Hypokalemia Problem: Acute (3) Generalized weakness Problem: Acute (1) Accelerated essential hypertension Problem: Resolved (2) Hypokalemia Problem: Resolved (3) Generalized weakness Problem: Resolved Date of Discharge:: 06/17/20 Hospital Course: Buffy was admitted for hypokalemia and accellerated hypertension. Potassium was replaced and her weakness improved and she feels back to normal. Her blood pressure improved as well. Hypokalemia is secondary to HCTZ. Will discontinue HCTZ and start losartan. Follow up with her PCP for potassium recheck and blood pressure monitoring. Procedures Performed: none Results and Findings: Lab Pending Results 06/17/20 00:05: WBC 7.5, RBC 3.43 L, Hgb 10.1 L, Hct 30.7 L, MCV 89.5, MCH 29.4, MCHC 32.9, RDW 13.3, Plt Count 325, MPV 10.6, Immature Gran % (Auto) 0.10, Immature Gran # (Auto) 0.01, Neutrophils % 62.4, Lymphocytes % 25.1, Monocytes % 10.0 H, Eosinophils % 1.9, Basophils % 0.5, Nucleated RBC % 0.0, Neutrophils # 4.7, Lymphocytes # 1.88, Monocytes # 0.8, Eosinophils # 0.1, Absolute Basophils 0.0 06/17/20 00:05: PT 12.4 H, INR (Anticoag Therapy) 1.20 H, PTT ([place]) 27.8 06/17/20 00:05: Sodium 144 H, Plasma Sodium 144 H, Potassium 2.4 L*, Chloride 112 H, Carbon Dioxide 21.7 L, Anion Gap 12.7, BUN 13, Creatinine 0.71, Est GFR (Non-Af Amer) 90 D, BUN/Creatinine Ratio 18.3, Random Glucose 94, Calcium 9.4, Calcium Adj for Albumin 9.8, Total Bilirubin 0.4, AST 12, ALT 14 L, Alkaline Phosphatase 70, Troponin I 0.021, Total Protein 6.0 L, Albumin 3.1 L 06/17/20 00:05: Magnesium 1.6, Creatine Kinase 53 06/17/20 01:43: SARS-CoV-2 (PCR) Not detected 06/17/20 03:10: Sodium 143 H, Plasma Sodium 143 H, Potassium 3.1 L D, Chloride 113 H, Carbon Dioxide 19.7 L, Anion Gap 13.4, BUN 12, Creatinine 0.72, Est GFR (Non-Af Amer) 88, BUN/Creatinine Ratio 16.7, Random Glucose 96, Calcium 8.9 06/17/20 09:10: Sodium 146 H, Plasma Sodium 146 H, Potassium 3.1 L, Chloride 116 H, Carbon Dioxide 19.4 L, Anion Gap 13.7, BUN 10, Creatinine 0.67, Est GFR (Non- Af Amer) 96, BUN/Creatinine Ratio 14.9, Random Glucose 95, Calcium 8.6, Calcium Adj for Albumin 9.3, Total Bilirubin 0.3, AST 12, ALT 14 L, Alkaline Phosphatase 60, Total Protein 5.4 L, Albumin 2.7 L 06/17/20 13:07: Sodium 146 H, Plasma Sodium 147 H, Potassium 3.8 D, Chloride 117 H, Carbon Dioxide 18.8 L, Anion Gap 14.0 H, BUN 10, Creatinine 0.71, Est GFR (Non-Af Amer) 90, BUN/Creatinine Ratio 14.1, Random Glucose 134 H D, Calcium 8.6, Calcium Adj for Albumin 9.3, Total Bilirubin 0.3, AST 13, ALT 14 L, Alkaline Phosphatase 59, Total Protein 5.4 L, Albumin 2.7 L Discharge Location: Home Disposition: Home self-care Condition: Good Discharge Activity: Activity as tolerated Discharge Diet: Low salt Referrals: Medina Ritter DO [Primary Care Provider] - One Week Problem Oriented Discharge Instructions to Patient/Family: Hypokalemia Prescriptions (Any new or edited meds): Losartan Potassium [Cozaar] 50 mg PO DAILY #30 tab Transmission Status: Pending to [facility] #[id number] Complete Home Medications List: Complete Home Medication List: acetaminophen 325 mg capsule 325 mg PO DAILY PRN cap 03/05/18 flecainide 100 mg tablet 200 mg PO Q12H tab 03/05/18 ibuprofen 200 mg tablet 800 mg PO TID PRN tab 03/05/18 omeprazole 40 mg capsule,delayed release 40 mg PO DAILY 03/05/18 tiotropium bromide 1.25 mcg/actuation mist for inhalation 2 inh IH DAILY 03/05/18 rOPINIRole HCL [Ropinirole HCl] 0.5 mg PO BID 06/29/19 Ondansetron [Zofran Odt] 4 mg PO Q6H PRN #20 tab 04/29/20 Rivaroxaban [Xarelto] 20 mg PO HS 04/29/20 Escitalopram Oxalate 10 mg PO DAILY 06/01/20 Carvedilol [Coreg] 25 mg PO BID 06/17/20 Losartan Potassium [Cozaar] 50 mg PO DAILY #30 tab 06/17/20
[2020-06-17 14:33] VITALS: BP 155/62
== END 2020-06-17 14:59 | disposition home or self-care (01) ==
LOC: ER 23:20 → INTOOBSV 06-17 03:03 → MS 06-17 03:03
PROVIDERS: ADMIT Family Medicine; ATTEND Family Medicine